=== PATIENT | female | born 1995 | race Caucasian/White ===

== ENCOUNTER 2025-06-03 12:32 | Emergency (ER) | payer BC, SELFPAY ==
--- NOTE | ~2025-06-03 | XR_ITS ---
EXAMINATION: XR chest 2V 06/03/2025 14:35 INDICATION: Right lower rib pain. Upper respiratory infection. PROCEDURE: 2 view chest COMPARISON: No prior studies for comparison. FINDINGS: The lungs are clear. Calcified granuloma right lung base. The cardiomediastinal silhouette is within normal limits. There are no pleural effusions. There is no pneumothorax suspected. IMPRESSION: 1: NO ACUTE CARDIOPULMONARY DISEASE. Reviewed, dictated and finalized at location O. ER [employer]OCK[employer] ENGINE
--- NOTE | ~2025-06-03 | CT_ITS ---
EXAMINATION: CTA chest PE protocol, 06/03/2025 15:25 COLD MILL OPERATOR HISTORY: cp COMPARISON: No comparisons available. TECHNIQUE: CTA examination is obtained with contrast CTA examination technique is performed with arterial phase of contrast-enhancement. 3-D reconstruction with thin MIP axial and MPR coronal imaging is provided Isovue 300, 92cc injected IV. One or more of the following dose reduction techniques were used: automated exposure control, adjustment of the mA and/or kV according to patient size, use of iterative reconstruction technique. FINDINGS: No significant coronary calcification is present ([id number]) LUNGS: Contrast bolus is adequate, there is no pulmonary embolism. No tracheomalacia. No bronchiectasis. Minimal emphysematous changes. Right basilar infiltrate noted. Within the right lower lobe there is a nodule measuring 11 x 10 mm with adjacent micronodules in a tree-in-bud distribution. HEART AND PERICARDIUM: Within normal limits. AORTA: Normal caliber aorta.. PULMONARY ARTERIES: No pulmonary embolism ADENOPATHY/MEDIASTINUM: There is a large heterogeneous appearing subcarinal mass measuring 4 x 3.9 cm extending into the right hilum and the adjacent parenchyma with narrowing of the bronchus in this location suspicious for neoplasm. LIMITED VIEWS OF THE ABDOMEN: Within normal limits. OSSEOUS STRUCTURES: No sclerotic or lytic lesions. No acute fractures are identified. OVERLYING SOFT TISSUES: Unremarkable. THYROID: The thyroid is unremarkable. IMPRESSION: 1. Negative for pulmonary embolism. 2. Large focus of right lower lobe probable bronchopneumonia however there is a subcarinal mass which may represent reactive mediastinal lymphadenopathy however the appearance is atypical with narrowing of the bronchi in this location an underlying neoplasm is suspected. Clinical correlation is required. Bronchoscopy suggested to assess Reviewed, dictated and finalized at location P. MILL OPERATOR IMPRESSION: 1. Negative for pulmonary embolism. 2. Large focus of right lower lobe probable bronchopneumonia however there is a subcarinal mass which may represent reactive mediastinal lymphadenopathy howev er the appearance is atypical with narrowing of the bronchi in this location an underlying neoplasm is suspected. Clinical correlation is required. Bronchosco py suggested to assess
[2025-06-03 12:37] VITALS: BP 149/88; PULSE 109; RESP 20; TEMP 36.6; O2SAT 100
--- OUTSIDE RECORDS SUMMARY | 2025-06-03 12:41 | XMS_ITS | Encounter Summary ---
Author Organization [employer] [facility] Address [address] [place] [address] Care Team Providers Care Steeplechase Jockey Name Role Phone Unavailable Primary Care Provider Unavailabl e Encounter Details Date Type Department Care Team (Latest Contact Info) Description 08/05/1998 Outpatient Historical [facility] Ray, Norris Guerra MD NO ADDRESS ON FILE Enlargement of lymph nodes (Primary Dx) Social History Tobacco Use Types Packs/Day Years Used Date Smoking Tobacco: Never Assessed Comments Unknown Sex and Gender Information Value Date Recorded Sex Assigned at Not on file Legal Sex Female 3:29 AM HEALTH INFORMATION DIRECTOR Gender Identity Not on file Sexual Orientation Not on file documented as of this encounter Plan of Treatment Not on file documented as of this encounter Visit Diagnoses Diagnosis Enlargement of lymph nodes- Primary documented in this encounter
--- OUTSIDE RECORDS SUMMARY | 2025-06-03 12:41 | XMS_ITS | Encounter Summary ---
Author Organization [employer] Address [address] [place] [address] Care Team Providers Care Director Of Human Resources Name Role Phone Unavailable Primary Care Provider Unavailabl e Encounter Details Date Type Department Care Team (Latest Contact Info) Description 08/24/1998 Outpatient Historical [facility] Norris Ray MD NO ADDRESS ON FILE Enlargement of lymph nodes (Primary Dx) Social History Tobacco Use Types Packs/Day Years Used Date Smoking Tobacco: Never Assessed Comments Unknown Sex and Gender Information Value Date Recorded Sex Assigned at Not on file Legal Sex Female 3:29 AM VICE PRESIDENT SAFETY Gender Identity Not on file Sexual Orientation Not on file documented as of this encounter Plan of Treatment Not on file documented as of this encounter Visit Diagnoses Diagnosis Enlargement of lymph nodes- Primary documented in this encounter
--- OUTSIDE RECORDS SUMMARY | 2025-06-03 12:41 | XMS_ITS | Clinical Summary ---
Author Organization [employer] [facility] Address [address] [facility] Attn: Epic Prelude ADT CRELISSA JARAMILLO [address] Care Team Providers Care Donation Worker Name Role Phone Unavailable Primary Care Provider Unavailabl e Social History Tobacco Use Types Packs/Day Years Used Date Smoking Tobacco: Never Assessed Comments Unknown Sex and Gender Information Value Date Recorded Sex Assigned at Not on file Legal Sex Female 3:29 AM SCUBA INSTRUCTOR Gender Identity Not on file Sexual Orientation Not on file Plan of Treatment Health Maintenance Due Date Last Done Comments DTAP/TDAP/TD VACCINES (1 - Tdap) 2016 HEPATITIS B VACCINES (1 of 3 - 19+ 3-dose series) 03/10 CERVICAL CANCER SCREENING 2018 HPV/Cotest (21-29) 2018 PAP SMEAR 2018 HPV VACCINES (1 - 3-dose SCDM series) 2024 INFLUENZA VACCINE (#1) 2025
--- OUTSIDE RECORDS SUMMARY | 2025-06-03 13:58 | XMS_ITS | Encounter Summary ---
Author Organization [facility] Address [address] [address] Care Team Providers Care Tafe Registrar Name Role Phone Callie Grubbs M.D. Primary Care Provider Darci Mars M.D. Unavailable Jai Pleitez M.D. Unavailable [phone] Lacey Ambriz M.D. Unavailable [phone] Callie Grubbs M.D. Unavailable Encounter Details Date Type Department Care Team (Late st Contact Info) Description 03/12/2024 [facility] Patient Message [facility] [address] [place] [address] Callie Grubbs M.D. [address] [place] [address] Social History Tobacco Use Types Packs/Day Years Used Date Smoking Tobacco: Never Smokeless Tobacco: Never Alcohol Use Standard Drinks/Week Comments Yes 0 (1 standard drink = 0.6 oz pur e alcohol) socially PHQ-2 Answer Date Recorded PHQ-2 Score 2 09/12/2023 Comments Unknown Sex and Gender Information Value Date Recorded Sex Assigned at Female 09/11/2023 5:42 PM HISTORY CARD CLERK Legal Sex Female 11:18 AM HISTORY CARD CLERK Gender Identity Female 09/11/2023 5:42 PM HISTORY CARD CLERK Sexual Orientation Bisexual 09/11/2023 5: 42 PM HISTORY CARD CLERK documented as of this encounter Plan of Treatment Upcoming Encounters Date Type Department Care Team (Late st Contact Info) Description 10/07/2025 4:00 PM CDT Office Visit [facility] [address] [place] [address] Jai Pleitez M.D. [address] [phone] documented as of this encounter Visit Diagnoses Not on filedocumented in this encounter Additional Health Concerns Assessment Noted Time PHQ-2 Depression Total Score: 2 09/12/19 24 4:15 PM HISTORY CARD CLERK documented as of this encounter Care Teams Tafe Registrar Relationship Specialty Start Date End Date Callie Grubbs M.D. [address] [place] [address] PCP - General Family Practice 09/12/23 Callie Grubbs M.D. [address] [place] [address] PCP - ACO Blue Attributed PCP 07/09/24 Darci Mars M.D. [address] [place] [address] Referring Provider Gastroenterology 02/25/24 Jai Pleitez M.D. [address] [phone] Referring Provider Gastroenterology 11/13/24 Lacey Ambriz M.D. [address] [place] [address] Referring Provider Urgent Care 03/26/25 documented as of this encounter
--- OUTSIDE RECORDS SUMMARY | 2025-06-03 13:58 | XMS_ITS | Encounter Summary ---
Author Organization [facility] Address [address] [address] Care Team Providers Care Emergency Response Technician Name Role Phone Callie Grubbs M.D. Primary Care Provider Darci Mars M.D. Unavailable [phone] Jai Pleitez M.D. Unavailable [phone] Lacey Ambriz M.D. Unavailable [phone] Callie Grubbs M.D. Unavailable [phone] Encounter Details Date Type Department Care Team (Late st Contact Info) Description 03/12/2024 [facility] Patient Message [facility] [address] [place] [address] Darci Mars M.D. [address] [place] [address] Social History Tobacco Use Types Packs/Day Years Used Date Smoking Tobacco: Never Smokeless Tobacco: Never Alcohol Use Standard Drinks/Week Comments Yes 0 (1 standard drink = 0.6 oz pur e alcohol) socially PHQ-2 Answer Date Recorded PHQ-2 Score 2 09/12/2023 Comments Unknown Sex and Gender Information Value Date Recorded Sex Assigned at Female 09/11/2023 5:42 PM HOSPITAL SALES REPRESENTATIVE Legal Sex Female 11:18 AM HOSPITAL SALES REPRESENTATIVE Gender Identity Female 09/11/2023 5:42 PM HOSPITAL SALES REPRESENTATIVE Sexual Orientation Bisexual 09/11/2023 5: 42 PM HOSPITAL SALES REPRESENTATIVE documented as of this encounter Plan of Treatment Upcoming Encounters Date Type Department Care Team (Late st Contact Info) Description 10/07/2025 4:00 PM CDT Office Visit [facility] [address] [place] [address] Jai Pleitez M.D. [address] [phone] documented as of this encounter Visit Diagnoses Not on filedocumented in this encounter Additional Health Concerns Assessment Noted Time PHQ-2 Depression Total Score: 2 09/12/19 4:15 PM HOSPITAL SALES REPRESENTATIVE documented as of this encounter Care Teams Emergency Response Technician Relationship Specialty Start Date End Date Callie Grubbs M.D. [address] [place] [address] PCP - General Family Practice 09/12/23 Callie Grubbs M.D. [address] [place] [address] PCP - ACO Blue Attributed PCP 07/09/24 Darci Mars M.D. [address] [place] [address] Referring Provider Gastroenterology 02/25/24 Jai Pleitez M.D. [address] [phone] Referring Provider Gastroenterology 11/13/24 Lacey Ambriz M.D. [address] [place] [address] Referring Provider Urgent Care 03/26/25 documented as of this encounter
--- OUTSIDE RECORDS SUMMARY | 2025-06-03 13:59 | XMS_ITS | Clinical Summary ---
Author Organization [facility] Address [address] [address] Care Team Providers Care Visual Merchandise Manager Name Role Phone Callie Grubbs M.D. Primary Care Provider [phone] Darci Mars M.D. Unavailable [phone] Jai Pleitez M.D. Unavailable [phone] Lacey Ambriz M.D. Unavailable [phone] Callie Grubbs M.D. Unavailable [phone] Allergies No known active allergies Medications mesalamine (ROWASA) 4 gram/60 mL enem enema Unwrap and insert 60 mL into the rectum every night at bedtime. 1800 mL 2 06/02/2024 3:32 PM CASH ACCOUNTING CLERK 4 Active sucralfate (Carafate) 100 mg/mL oral suspension Take 10 mL by mouth before meals and at bedtime. ...as needed for discomfort 300 mL 5 Active mesalamine (LIALDA) 1.2 gram tablet TAKE 2 TABLETS BY MOUTH DAILY 60 tablet 3 5 Active mesalamine (LIALDA) 1.2 gram tablet Take 2 tablets by mouth daily. 60 tablet 3 5 05/23/20 25 Discontinu ed(Therapy Complete) Active Problems Problem Noted Date Diagnosed Date IBD (inflammatory bowel disease) 09/08/2024 Family history of Renteria syndrome 09/08/2024 Encounters Date Type Department Care Team Description 05/23/2025 [facility] [address] [place] [address] Jai Pleitez M.D. 04/01/2025 [facility] Patient Message [facility] Family [facility] [address] [place] [address] Callie Grubbs M.D. 03/26/2025 5:40 PM CDT - 03/26/2025 11:59 PM CDT Hospital Encounter [facility] Diagnostic Radiology [address] [place] [address] Lacey Ambriz M.D. Chest pain, unspecified type Discharge Disposition: Home 03/26/2025 5:00 PM CDT Office Visit [facility] [address] [place] [address] Lacey Ambriz M.D. Chest pain, unspecified type (Primary Dx) 03/26/2025 Telephone [facility] [address] [place] [address] Katerin Sam R.N. 03/26/2025 Telephone [facility] [address] [place] [address] Elver Gan from Last 3 Months Immunizations Immunization Administration Dates Next Due Covid-19 Vaccine (Moderna) ( 12 Years And Older) [id number] 10/06/2024 DTaP Vaccine 02/16/2003, 9,1997,1997,1997 Hepatitis A Vaccine 03/05/2002,03/05/2000 Hepatitis B Vaccine, (3-Dose Series) 1997, 1997,1997 Human Papilloma Virus Vaccin e (Gardasil 9) 05/29/2011,12/06/2010,10/03/2010 Influenza Vaccine (FLUARIX) (6 Months to Adult) 09/12/2023,04/11/2021 Influenza Vaccine (Flucelvax ) 6 months and up 05/01/2022 Influenza Vaccine (Trivalent )(PF), 3 Yrs-Adult 04/24/2024 Influenza Vaccine-Egg Free ( 18+yo) (Flublok) 04/23/2020 Measles, Mumps & Rubella (MMR) 03/05/2002,1998 MenACWY-D (Menactra) (9 radha hs or older) 04/19/2015,12/07/2008 PPD Test 12/18/2011,01/13/2006,02/16/2003 Tdap Vaccine 10/06/2024,12/07/2008 Varicella Zoster Vaccine (Chickenpox) 01/14/2008 ,05/11/1998 Family History Medical History Relation Comments Hypertension Maternal Aunt Other Maternal Aunt Renteria syndrome Hypertension Maternal Grandfather Hypertension Maternal Grandmother Hypertension Maternal Uncle Inflammatory Bowel Disease - Ulcerative Colitis Maternal cousin Other Mother Renteria syndrome Hypertension Paternal Aunt Hypertension Paternal Grandfather Hypertension Paternal Grandmother Relation Status Comments Brother Alive Father Alive Maternal Aunt Alive Maternal Grandfather Maternal Grandmother Maternal Uncle Maternal cousin Alive Mother Alive Paternal Aunt Paternal Grandfather Paternal Grandmother Social History Tobacco Use Types Packs/Day Years Used Date Smoking Tobacco: Never Smokeless Tobacco: Never Tobacco Cessation:Counseling Given: Not Answered Alcohol Use Standard Drinks/Week Comments Yes 0 (1 standard drink = 0.6 oz pur e alcohol) socially PHQ-2 Answer Date Recorded PHQ-2 Score 0 07/15/2024 Comments Unknown Sex and Gender Information Value Date Recorded Sex Assigned at Female 09/11/2023 5:42 PM CASH ACCOUNTING CLERK Legal Sex Female 11:18 AM CASH ACCOUNTING CLERK Gender Identity Female 09/11/2023 5:42 PM CASH ACCOUNTING CLERK Sexual Orientation Bisexual 09/11/2023 5: 42 PM CASH ACCOUNTING CLERK Last Filed Vital Signs Vital Sign Reading Time Taken Comments Blood Pressure 129/79 03/26/2025 5:13 PM CDT Pulse 74 03/26/2025 5:13 PM CDT Temperature 36.5 C (97.7 F) 03/26/2025 5:13 PM CDT Respiratory Rate 18 03/26/2025 5:13 PM CDT Oxygen Saturation 100% 03/26/2025 5:13 PM CDT Inhaled Oxygen Concentration - - Weight 78.5 kg (173 lb) 03/26/2025 5:13 PM CDT Height 172.7 cm (5' 8) 03/26/2025 5:13 PM CDT Body Mass Index 26.3 03/26/2025 5:13 PM CDT Plan of Treatment Upcoming Encounters Date Type Department Care Team (Late st Contact Info) Description 10/07/2025 4:00 PM CDT Office Visit [facility] [address] [place] [address] Jai Pleitez M.D. [address] [place] [address] [facility] [place] [address] Health Maintenance Due Date Last Done Comments HEPATITIS C SCREENING 1997 HIV SCREENING 2012 Pneumococcal Vaccine: Childh ood and At-Risk Adult <65 yo Series (1 of 2 - PCV) 2016 ZOSTER SERIES VACCINE (1 of 2) 2016 COVID-19 VACCINE (6 - 2024-2 6 season) 2025 10/06/2024, 05/01/2022, 06/09/2021, Additional history exists INFLUENZA VACCINE (#1) 2025 , 09/12/2023, 05/01/2022, Additional history exists DEPRESSION SCREENING 07/15/2025 07/15/2024, 09/12/19 24 CERVICAL CANCER SCREENING 09/07/2025 09/07/2022 TDAP/TD VACCINE (8 - Td or Tdap) 10/06/2034 10/06/2024, 12/07/2008, 02/16/2003, Additional history exists Adult RSV VACCINE (1 - 1-dos e 75+ series) 2072 Procedures Procedure Name Priority Date/Time Associated Diagnosis Comments XR CHEST PA/LATERAL STAT with Interpretation 03/26/2025 5:46 PM CDT Chest pain, unspecified type HC CARDIAC TROPONIN T STAT 03/26/2025 5:44 PM CDT Chest pain, unspecified type D DIMER ASSAY STAT 03/26/2025 5:44 PM CDT Chest pain, unspecified type ADULT STANDARD 12 LEAD EKG/ECG STAT 03/26/2025 5:15 PM CDT Chest pain, unspecified type from Last 3 Months Results * XR CHEST PA/LATERAL (03/26/2025 5:46 PM CDT) Anatomical Region Laterality Modality Chest General Medical Imaging 03/27/2025 8:35 AM CDT Impressions 03/27/2025 8:42 AM CDT IMPRESSION: Right lower lung nodular opacity?indeterminate; follow-up recommended. Report Electronically Signed: 03/27/2025 8:42 AM Mehrdad Calixto M.D. Narrative 03/27/2025 8:42 AM CDT XR CHEST PA/LATERAL CLINICAL INFORMATION: Female, 29 years old. Reason: r/o effusion, mass, etc History: R sided CP TECHNIQUE: XR CHEST PA/LATERAL COMPARISON: None FINDINGS: Cardiomediastinal silhouette is within normal limits. No pneumothorax, pleural effusion, or focal consolidation is identified. A focal nodular opacity in the right lower lung is nonspecific and may reflect aspiration or infectious/inflammatory etiology. This opacity is not clearly visualized on the lateral chest radiograph. Follow-up imaging is recommended. Procedure Note Mehrdad Calixto M.D. - 03/27/2025 XR CHEST PA/LATERAL CLINICAL INFORMATION: Female, 29 years old. Reason: r/o effusion, mass, etc History: R sided CP TECHNIQUE: XR CHEST PA/LATERAL COMPARISON: None FINDINGS: Cardiomediastinal silhouette is within normal limits. Nopneumothorax, pleural effusion, or focal consolidation is identified. A focal nodular opacity in the right lower lung is nonspecific and mayreflect aspiration or infectious/inflammatory etiology. This opacity is not clearlyvisualized on the lateral chest radiograph. Follow-up imaging is recommended. IMPRESSION IMPRESSION: Right lower lung nodular opacity?indeterminate; follow- uprecommended. Report Electronically Signed: 03/27/2025 8:42 AM Mehrdad Calixto M.D. us Lacey Abmriz M.D. RADI Final Res ult * HIGH SENSITIVITY TROPONIN T (03/26/2025 5:44 PM CDT) [facility] High Sensitivity Troponin T <6 <14 ng/L 03/26/2025 10:22 PM CDT [facility] Blood VENOUS BLOOD / Unknown Venipuncture / Unknown 03/26/2025 5:44 PM CDT 03/26/2025 7:32 PM CDT Lacey Ambriz M.D. LAB CHEMISTRY ORDERABLES Final Result [facility] [address] [place] [address] * (ABNORMAL) D DIMER ASSAY (03/26/2025 5:44 PM CDT) [facility] D-Dimer Assay 0.58(H) <0.40 ug/mL FEU 03/26/2025 11:38 PM CDT [facility] Blood VENOUS BLOOD / Unknown Venipuncture / Unknown 03/26/2025 5:44 PM CDT 03/26/2025 10:19 PM CDT Narrative [facility] - 03/26/2025 11:38 PM CDT Note: The literature cut-off value for exclusion of DVT/PE in adults using this assay is generally 0.5 ug/mL Fibrinogen Equivalent Units (FEU). This cut-off has not been locally validated. Age-adjusted D-dimer calculations (only to be used for patients 50 years or greater) have been reported in the literature for the purpose of VTE exclusion, but are also not locally developed or validated. Age-adjusted D-dimer can be calculated as the patient's age multiplied by 0.01 ug/mL (10 ug/L). Example: For a patient aged 68 years, the D-dimer (in [facility]-utilized FEU units) would be considered normal below 0.680 ug/mL D-dimer levels are not validated for VTE exclusion in children. Elevated D-dimers could be due to acute thrombosis, recent surgery, sepsis, malignancy, increased fibrinolysis associated with DIC, liver disease, and other causes. False-positives can result from high titer rheumatoid factor, heterophile, or anti-mouse antibodies. References: 1. Jaspreet COVARRUBIAS et al. Clinical Decision Rules for Pulmonary Embolism in Hospitalized Patients: A Systematic Literature Review and [place]-analysis. Thromb Haemost. 2017. 117(11):9648-3975. PMID: 97318880. 2. Nancy HJ et al. Diagnostic accuracy of conventional or age adjusted D- dimer cut-off values in older patients with suspected venous thromboembolism: systematic review and meta-analysis. BMJ. 2013. 346:f2492. PMID: 46140059. 3. Jose Y et al. Effect of a Diagnostic Strategy Using an Elevated and Age- Adjusted D-Dimer Threshold on Thromboembolic Events in Emergency Department Patients With Suspected Pulmonary Embolism: A Randomized Clinical Trial. MARIA L. 2020Jun 14;326(21):8499-0157. PMID: 86880596 4. Aquino, Elkin James, Valarie James, Simin Quinn, Li Chu. Age-adjusted D-dimer cut-off levels to rule out venous thromboembolism in patients with non-high pre-test probability: Clinical performance and cost-effectiveness analysis. J Thromb Haemost. 2020;19(5):0377-1847. doi: 10.1111/jth.00254. Ep2020Sep 27. PMID: 23355755. 5. Li Chu, Karen James, Elkin James, F, Lucy D, Wellington C, Sherley J, Edmundo R, Aquino. Age dependency for coagulation parameters in paediatric populations. Results of a multicentre study aimed at defining the age-specific reference ranges. Thromb Haemost. 2016 Jan 09;116(1):9-16. doi: 10.1160/OC40-28-9386. Ep2015Sep 22. PMID: 74465455. Lacey Ambriz M.D. LAB COAGULATION ORDERABLE S Final Result [address] [address] * ADULT STANDARD 12 LEAD EKG/ECG (03/26/2025 5:15 PM CDT) SYSTOLIC BP mmHg [facility] DIASTOLIC BP mmHg [facility] VENTRICULAR RATE 69 BPM [facility] ATRIAL RATE 69 BPM [facility] P-R INTERVAL 144 ms [facility] QRS DURATION 92 ms [facility] Q-T INTERVAL 414 ms [facility] QTC CALCULATION 443 ms [facility] CALCULATED P AXIS 65 degrees [facility] CALCULATED R AXIS 62 degrees [facility] CALCULATED T AXIS 53 degrees [facility] DIAGNOSIS Normal sinus rhythm with sinus arrhythmia Normal ECG Confirmed by ARGENIS RODRIGUEZ M.D. ([id number]) on 04/06/2025 7:34:30 AM [facility] 03/26/2025 5:15 PM CDT 04/06/2025 7:34 AM CDT Lacey Ambriz M.D. HEART STATION ORDERABLES Final Result Performing Organization Address City/State/[facility] Co de Phone Number [facility] [address] [facility] [place] [address] from Last 3 Months Insurance BC/BS PPO BC/BS PPO BC/BS PPO BC/BS PPO Care Teams Visual Merchandise Manager Relationship Specialty Start Date End Date Callie Grubbs M.D. [address] [place], [place] [phone] PCP - General Family Practice 09/12/23 Callie Grubbs M.D. [address] [place] [phone] PCP - ACO Blue Attributed PCP 07/09/24 Darci Mars M.D. [address] [place] [address] Referring Provider Gastroenterology 02/25/24 Jai Pleitez M.D. [address] [facility] [phone] Referring Provider Gastroenterology 11/13/24 Lacey Ambriz M.D. [address] [place] [phone] Referring Provider Urgent Care 03/26/25
--- OUTSIDE RECORDS SUMMARY | 2025-06-03 13:59 | XMS_ITS | Encounter Summary ---
Author Organization [facility] Address [address] [address] Care Team Providers Care Data Center Solutions Architect Name Role Phone Callie Grubbs M.D. Primary Care Provider Darci Mars M.D. Unavailable [phone] Jai Pleitez M.D. Unavailable [phone] Lacey Ambriz M.D. Unavailable [phone] Callie Grubbs M.D. Unavailable [phone] Encounter Details Date Type Department Care Team (Late st Contact Info) Description 02/18/2024 [facility] Patient [facility] Internal Medicine [address] [place], [place] [phone] Daya Olmedo R.N. Social History Tobacco Use Types Packs/Day Years Used Date Smoking Tobacco: Never Smokeless Tobacco: Never Alcohol Use Standard Drinks/Week Comments Yes 0 (1 standard drink = 0.6 oz pur e alcohol) socially PHQ-2 Answer Date Recorded PHQ-2 Score 2 09/12/2023 Comments Unknown Sex and Gender Information Value Date Recorded Sex Assigned at Female 09/11/2023 5:42 PM ENGINEERING SPECIALIST Legal Sex Female 11:18 AM ENGINEERING SPECIALIST Gender Identity Female 09/11/2023 5:42 PM ENGINEERING SPECIALIST Sexual Orientation Bisexual 09/11/2023 5: 42 PM ENGINEERING SPECIALIST documented as of this encounter Plan of Treatment Upcoming Encounters Date Type Department Care Team (Late st Contact Info) Description 10/07/2025 4:00 PM CDT Office Visit [facility] [address] [place] [address] Jai Pleitez M.D. [address] [phone] documented as of this encounter Visit Diagnoses Not on filedocumented in this encounter Additional Health Concerns Assessment Noted Time PHQ-2 Depression Total Score: 2 09/12/19 24 4:15 PM ENGINEERING SPECIALIST documented as of this encounter Care Teams Data Center Solutions Architect Relationship Specialty Start Date End Date Callie Grubbs M.D. [address] [place] [address] PCP - General Family Practice 09/12/23 Callie Grubbs M.D. [address] [place] [phone] PCP - ACO Blue Attributed PCP 07/09/24 Darci Mars M.D. [address] [place] [address] Referring Provider Gastroenterology 02/25/24 Jai Pleitez M.D. [address] [phone] Referring Provider Gastroenterology 11/13/24 Lacey Ambriz M.D. [address] [place] [address] Referring Provider Urgent Care 03/26/25 documented as of this encounter
--- OUTSIDE RECORDS SUMMARY | 2025-06-03 13:59 | XMS_ITS | Encounter Summary ---
Author Organization [facility] Address [address] [place] [address] Care Team Providers Care Retort Engineer Name Role Phone Callie Grubbs M.D. Primary Care Provider Darci Mars M.D. Unavailable Jai Pleitez M.D. Unavailable [phone] Lacey Ambriz M.D. Unavailable [phone] Callie Grubbs M.D. Unavailable [phone] Encounter Details Date Type Department Care Team (Late st Contact Info) Description 07/12/2024 MYC Patient Message [facility] [address] [facility] Room [address] [place] [phone] Mychart, Default Provider [address] [facility] [address] [place] [address] Social History Tobacco Use Types Packs/Day Years Used Date Smoking Tobacco: Never Smokeless Tobacco: Never Alcohol Use Standard Drinks/Week Comments Yes 0 (1 standard drink = 0.6 oz pur e alcohol) socially PHQ-2 Answer Date Recorded PHQ-2 Score 0 07/15/2024 Comments Unknown Sex and Gender Information Value Date Recorded Sex Assigned at Female 09/11/2023 5:42 PM SUPERVISOR SHUTTLE FITTING Legal Sex Female 11:18 AM SUPERVISOR SHUTTLE FITTING Gender Identity Female 09/11/2023 5:42 PM SUPERVISOR SHUTTLE FITTING Sexual Orientation Bisexual 09/11/2023 5: 42 PM SUPERVISOR SHUTTLE FITTING documented as of this encounter Plan of Treatment Upcoming Encounters Date Type Department Care Team (Late st Contact Info) Description 10/07/2025 4:00 PM CDT Office Visit [facility] [address] [place] [address] Jai Pleitez M.D. [address] [phone] documented as of this encounter Visit Diagnoses Not on filedocumented in this encounter Additional Health Concerns Assessment Noted Time PHQ-2 Depression Total Score: 2 09/12/19 24 4:15 PM SUPERVISOR SHUTTLE FITTING documented as of this encounter Care Teams Retort Engineer Relationship Specialty Start Date End Date Callie Grubbs M.D. [address] [place] [address] PCP - General Family Practice 09/12/23 Callie Grubbs M.D. [address] [place] [address] PCP - ACO Blue Attributed PCP 07/09/24 Darci Mars M.D. [address] [place] [address] Referring Provider Gastroenterology 02/25/24 Jai Pleitez M.D. [address] [phone] Referring Provider Gastroenterology 11/13/24 Lacey Ambriz M.D. [address] [place] [address] Referring Provider Urgent Care 03/26/25 documented as of this encounter
--- OUTSIDE RECORDS SUMMARY | 2025-06-03 13:59 | XMS_ITS | Encounter Summary ---
Author Organization [facility] Address [address] [address] Care Team Providers Care Supervisor Soakers Name Role Phone Callie Grubbs M.D. Primary Care Provider [phone] Darci Mars M.D. Unavailable [phone] Jai Pleitez M.D. Unavailable [phone] Lacey Ambriz M.D. Unavailable [phone] Callie Grubbs M.D. Unavailable [phone] Encounter Details Date Type Department Care Team (Late st Contact Info) Description 07/14/2024 [facility] [place] Message [facility] [address] [place] [address] Rhonda Basilio, C.GFrankC [address] [place] [address] Social History Tobacco Use Types Packs/Day Years Used Date Smoking Tobacco: Never Smokeless Tobacco: Never Alcohol Use Standard Drinks/Week Comments Yes 0 (1 standard drink = 0.6 oz pur e alcohol) socially PHQ-2 Answer Date Recorded PHQ-2 Score 0 07/15/2024 Comments Unknown Sex and Gender Information Value Date Recorded Sex Assigned at Female 09/11/2023 5:42 PM FUSELAGE FRAMER Legal Sex Female 11:18 AM FUSELAGE FRAMER Gender Identity Female 09/11/2023 5:42 PM FUSELAGE FRAMER Sexual Orientation Bisexual 09/11/2023 5: 42 PM FUSELAGE FRAMER documented as of this encounter Plan of Treatment Upcoming Encounters Date Type Department Care Team (Late st Contact Info) Description 10/07/2025 4:00 PM CDT Office Visit [facility] [address] [place] [address] Jai Pleitez M.D. [address] [phone] documented as of this encounter Visit Diagnoses Not on filedocumented in this encounter Additional Health Concerns Assessment Noted Time PHQ-2 Depression Total Score: 2 09/12/19 24 4:15 PM FUSELAGE FRAMER documented as of this encounter Care Teams Supervisor Soakers Relationship Specialty Start Date End Date Callie Grubbs M.D. [facility] [place] [address] PCP - General Family Practice 09/12/23 Callie Grubbs M.D. [address] [place] [address] PCP - ACO Blue Attributed PCP 07/09/24 Darci Mars M.D. [address] [place] [address] Referring Provider Gastroenterology 02/25/24 Jai Pleitez M.D. [address] [phone] Referring Provider Gastroenterology 11/13/24 Lacey Ambriz M.D. [address] [place] [address] Referring Provider Urgent Care 03/26/25 documented as of this encounter
--- OUTSIDE RECORDS SUMMARY | 2025-06-03 13:59 | XMS_ITS | Encounter Summary ---
Author Organization [facility] Address [address] [address] Care Team Providers Care Sba Business Development Officer Name Role Phone Callie Grubbs M.D. Primary Care Provider Darci Mars M.D. Unavailable Jai Pleitez M.D. Unavailable [phone] Lacey Ambriz M.D. Unavailable Callie Grubbs M.D. Unavailable Encounter Details Date Type Department Care Team (Late st Contact Info) Description 09/23/2024 [facility] Patient Message [facility] [address] [place] [address] Callie Grubbs M.D. [address] [place] [address] Social History Tobacco Use Types Packs/Day Years Used Date Smoking Tobacco: Never Smokeless Tobacco: Never Alcohol Use Standard Drinks/Week Comments Yes 0 (1 standard drink = 0.6 oz pur e alcohol) socially PHQ-2 Answer Date Recorded PHQ-2 Score 0 07/15/2024 Comments Unknown Sex and Gender Information Value Date Recorded Sex Assigned at Female 09/11/2023 5:42 PM BRAKE DRUM LATHE OPERATOR Legal Sex Female 11:18 AM BRAKE DRUM LATHE OPERATOR Gender Identity Female 09/11/2023 5:42 PM BRAKE DRUM LATHE OPERATOR Sexual Orientation Bisexual 09/11/2023 5: 42 PM BRAKE DRUM LATHE OPERATOR documented as of this encounter Plan of Treatment Upcoming Encounters Date Type Department Care Team (Late st Contact Info) Description 10/07/2025 4:00 PM CDT Office Visit [facility] [address] [place] [address] Jai Pleitez M.D. [address] [phone] documented as of this encounter Visit Diagnoses Not on filedocumented in this encounter Additional Health Concerns Assessment Noted Time PHQ-2 Depression Total Score: 0 07/15/19 9:30 AM BRAKE DRUM LATHE OPERATOR documented as of this encounter Care Teams Sba Business Development Officer Relationship Specialty Start Date End Date Callie Grubbs M.D. [address] [place] [address] PCP - General Family Practice 09/12/23 Callie Grubbs M.D. [address] [place] [address] PCP - ACO Blue Attributed PCP 07/09/24 Darci Mars M.D. [address] [place] [address] Referring Provider Gastroenterology 02/25/24 Jai Pleitez M.D. [address] [phone] Referring Provider Gastroenterology 11/13/24 Lacey Ambriz M.D. [address] [place] [address] Referring Provider Urgent Care 03/26/25 documented as of this encounter
--- OUTSIDE RECORDS SUMMARY | 2025-06-03 13:59 | XMS_ITS | Encounter Summary ---
Author Organization [facility] Address [address] [address] Care Team Providers Care Poultry Slaughterer Name Role Phone Callie Grubbs M.D. Primary Care Provider Darci Mars M.D. Unavailable Jai Pleitez M.D. Unavailable [phone] Lacey Ambriz M.D. Unavailable Callie Grubbs M.D. Unavailable [phone] Encounter Details Date Type Department Care Team (Late st Contact Info) Description 01/19/2025 [facility] Patient Message [facility] [address] [place] [address] Jai Pleitez M.D. [address] [facility] [place] [address] Social History Tobacco Use Types Packs/Day Years Used Date Smoking Tobacco: Never Smokeless Tobacco: Never Alcohol Use Standard Drinks/Week Comments Yes 0 (1 standard drink = 0.6 oz pur e alcohol) socially PHQ-2 Answer Date Recorded PHQ-2 Score 0 07/15/2024 Comments Unknown Sex and Gender Information Value Date Recorded Sex Assigned at Female 09/11/2023 5:42 PM APRON MAN Legal Sex Female 11:18 AM APRON MAN Gender Identity Female 09/11/2023 5:42 PM APRON MAN Sexual Orientation Bisexual 09/11/2023 5: 42 PM APRON MAN documented as of this encounter Plan of Treatment Upcoming Encounters Date Type Department Care Team (Late st Contact Info) Description 10/07/2025 4:00 PM CDT Office Visit [facility] [address] [place] [address] Jai Pleitez M.D. [address] [place] [address] [place] [address] documented as of this encounter Visit Diagnoses Not on filedocumented in this encounter Additional Health Concerns Assessment Noted Time PHQ-2 Depression Total Score: 0 07/15/19 9:30 AM APRON MAN documented as of this encounter Care Teams Poultry Slaughterer Relationship Specialty Start Date End Date Callie Grubbs M.D. [address] [place] [address] PCP - General Family Practice 09/12/23 Callie Grubbs M.D. [address] [place] [address] PCP - ACO Blue Attributed PCP 07/09/24 Darci Mars M.D. [address] [place] [address] Referring Provider Gastroenterology 02/25/24 Jai Pleitez M.D. [address] [address] Referring Provider Gastroenterology 11/13/24 Lacey Ambriz M.D. [address] [place] [id number] (work) Referring Provider Urgent Care 03/26/25 documented as of this encounter
--- OUTSIDE RECORDS SUMMARY | 2025-06-03 13:59 | XMS_ITS | Encounter Summary ---
Author Organization [facility] Address [address] [address] Care Team Providers Care Waredresser Name Role Phone Callie Grubbs M.D. Primary Care Provider [phone] Darci Mars M.D. Unavailable [phone] Jai Pleitez M.D. Unavailable [phone] Lacey Ambriz M.D. Unavailable Callie Grubbs M.D. Unavailable [phone] Encounter Details Date Type Department Care Team (Late st Contact Info) Description 01/16/2024 [facility] [place] Patient Message [facility] [address] [place] [address] Callie Grubbs M.D. [address] [place] [address] Social History Tobacco Use Types Packs/Day Years Used Date Smoking Tobacco: Never Smokeless Tobacco: Never Alcohol Use Standard Drinks/Week Comments Yes 0 (1 standard drink = 0.6 oz pur e alcohol) socially PHQ-2 Answer Date Recorded PHQ-2 Score 2 09/12/2023 Comments Unknown Sex and Gender Information Value Date Recorded Sex Assigned at Female 09/11/2023 5:42 PM RE DYE HAND Legal Sex Female 11:18 AM RE DYE HAND Gender Identity Female 09/11/2023 5:42 PM RE DYE HAND Sexual Orientation Bisexual 09/11/2023 5: 42 PM RE DYE HAND documented as of this encounter Plan of Treatment Upcoming Encounters Date Type Department Care Team (Late st Contact Info) Description 10/07/2025 4:00 PM CDT Office Visit [facility] [address] [place] [address] Jai Pleitez M.D. [address] [phone] documented as of this encounter Visit Diagnoses Not on filedocumented in this encounter Additional Health Concerns Assessment Noted Time PHQ-2 Depression Total Score: 2 09/12/19 24 4:15 PM RE DYE HAND documented as of this encounter Care Teams Waredresser Relationship Specialty Start Date End Date Callie Grubbs M.D. [address] [place] [address] PCP - General Family Practice 09/12/23 Callie Grubbs M.D. [address] [place] [address] PCP - ACO Blue Attributed PCP 07/09/24 Darci Mars M.D. [address] [place] [address] Referring Provider Gastroenterology 02/25/24 Jai Pleitez M.D. [address] [phone] Referring Provider Gastroenterology 11/13/24 Lacey Ambriz M.D. [address] [place] [address] Referring Provider Urgent Care 03/26/25 documented as of this encounter
--- OUTSIDE RECORDS SUMMARY | 2025-06-03 13:59 | XMS_ITS | Encounter Summary ---
Author Organization [facility] Address [address] [place] [address] Care Team Providers Care Inside Sales Agent Name Role Phone Unavailable Primary Care Provider Unavailabl e Encounter Details Date Type Department Care Team (Latest Contact Info) Description 08/05/1998 Outpatient Historical [facility] Ray, Norris Guerra MD NO ADDRESS ON FILE Enlargement of lymph nodes (Primary Dx) Social History Tobacco Use Types Packs/Day Years Used Date Smoking Tobacco: Never Assessed Comments Unknown Sex and Gender Information Value Date Recorded Sex Assigned at Not on file Legal Sex Female 3:29 AM FURNACE BRAZER Gender Identity Not on file Sexual Orientation Not on file documented as of this encounter Plan of Treatment Not on file documented as of this encounter Visit Diagnoses Diagnosis Enlargement of lymph nodes- Primary documented in this encounter
--- OUTSIDE RECORDS SUMMARY | 2025-06-03 13:59 | XMS_ITS | Clinical Summary ---
Author Organization [employer] [facility] Address [address] [facility] Attn: Epic Prelude ADT [place] [address] Care Team Providers Care Citrix Architect Name Role Phone Unavailable Primary Care Provider Unavailabl e Social History Tobacco Use Types Packs/Day Years Used Date Smoking Tobacco: Never Assessed Comments Unknown Sex and Gender Information Value Date Recorded Sex Assigned at Not on file Legal Sex Female 3:29 AM SCREW MACHINE OPERATOR SINGLE SPINDLE Gender Identity Not on file Sexual Orientation [...]
--- OUTSIDE RECORDS SUMMARY | 2025-06-03 13:59 | XMS_ITS | Encounter Summary ---
Author Organization [facility] Address [address] [address] Care Team Providers Care Screener Operator Name Role Phone Callie Grubbs M.D. Primary Care Provider [phone] Darci Mars M.D. Unavailable [phone] Jai Pleitez M.D. Unavailable [phone] Lacey Ambriz M.D. Unavailable [phone] Callie Grubbs M.D. Unavailable [phone] Encounter Details Date Type Department Care Team (Late st Contact Info) Description 03/21/2024 [facility] [place] Patient Message [facility] [address] [place], [place] [address] Cousins, Madelyn RFrankNFrank Social History Tobacco Use Types Packs/Day Years Used Date Smoking Tobacco: Never Smokeless Tobacco: Never Alcohol Use Standard Drinks/Week Comments Yes 0 (1 standard drink = 0.6 oz pur e alcohol) socially PHQ-2 Answer Date Recorded PHQ-2 Score 2 09/12/2023 Comments Unknown Sex and Gender Information Value Date Recorded Sex Assigned at Female 09/11/2023 5:42 PM GAS TRUCK DRIVER Legal Sex Female 11:18 AM GAS TRUCK DRIVER Gender Identity Female 09/11/2023 5:42 PM GAS TRUCK DRIVER Sexual Orientation Bisexual 09/11/2023 5: 42 PM GAS TRUCK DRIVER documented as of this encounter Plan of Treatment Upcoming Encounters Date Type Department Care Team (Late st Contact Info) Description 10/07/2025 4:00 PM CDT Office Visit [facility] [address] [place] [address] Jai Pleitez M.D. [address] [phone] documented as of this encounter Visit Diagnoses Not on filedocumented in this encounter Additional Health Concerns Assessment Noted Time PHQ-2 Depression Total Score: 2 09/12/19 24 4:15 PM GAS TRUCK DRIVER documented as of this encounter Care Teams Screener Operator Relationship Specialty Start Date End Date Callie Grubbs M.D. [address] [place] [address] PCP - General Family Practice 09/12/23 Callie Grubbs M.D. [address] [place] [address] PCP - ACO Blue Attributed PCP 07/09/24 Darci Mars M.D. [address] [place] [address] Referring Provider Gastroenterology 02/25/24 Jai Pleitez M.D. [address] [phone] Referring Provider Gastroenterology 11/13/24 Lacey Ambriz M.D. [address] [place] [address] Referring Provider Urgent Care 03/26/25 documented as of this encounter
--- OUTSIDE RECORDS SUMMARY | 2025-06-03 13:59 | XMS_ITS | Encounter Summary ---
Author Organization [facility] Address [address] [place] [address] Care Team Providers Care Explosive Man Name Role Phone Unavailable Primary Care Provider [...] on file Legal Sex Female 3:29 AM DIRECTOR ZONE Gender Identity Not on file Sexual Orientation Not on file documented as of this encounter Plan of Treatment Not on file documented as of this encounter Visit Diagnoses Diagnosis Enlargement of lymph nodes- Primary documented in this encounter
--- OUTSIDE RECORDS SUMMARY | 2025-06-03 13:59 | XMS_ITS | Encounter Summary ---
Author Organization [facility] Address [address] [address] Care Team Providers Care Pilot Boat Operator Name Role Phone Callie Grubbs M.D. Primary Care Provider Darci Mars M.D. Unavailable Jai Pleitez M.D. Unavailable [phone] Lacey Ambriz M.D. Unavailable Callie Grubbs M.D. Unavailable Encounter Details Date Type Department Care Team (Late st Contact Info) Description 04/01/2025 [facility] [place] Patient Message [facility] [address] [place] [address] Callie Grubbs M.D. [address] [place] [address] Social History Tobacco Use Types Packs/Day Years Used Date Smoking Tobacco: Never Smokeless Tobacco: Never Alcohol Use Standard Drinks/Week Comments Yes 0 (1 standard drink = 0.6 oz pur e alcohol) socially PHQ-2 Answer Date Recorded PHQ-2 Score 0 07/15/2024 Comments Unknown Sex and Gender Information Value Date Recorded Sex Assigned at Female 09/11/2023 5:42 PM SERVICER COIN MACHINES Legal Sex Female 11:18 AM SERVICER COIN MACHINES Gender Identity Female 09/11/2023 5:42 PM SERVICER COIN MACHINES Sexual Orientation Bisexual 09/11/2023 5: 42 PM SERVICER COIN MACHINES documented as of this encounter Plan of Treatment Upcoming Encounters Date Type Department Care Team (Late st Contact Info) Description 10/07/2025 4:00 PM CDT Office Visit [facility] [address] [place] [address] Jai Pleitez M.D. [address] [phone] documented as of this encounter Visit Diagnoses Not on filedocumented in this encounter Additional Health Concerns Assessment Noted Time PHQ-2 Depression Total Score: 0 07/15/19 9:30 AM SERVICER COIN MACHINES documented as of this encounter Care Teams Pilot Boat Operator Relationship Specialty Start Date End Date Callie Grubbs M.D. [address] [place] [address] PCP - General Family Practice 09/12/23 Callie Grubbs M.D. [address] [place] [address] PCP - ACO Blue Attributed PCP 07/09/24 Darci Mars M.D. [address] [place] [address] Referring Provider Gastroenterology 02/25/24 Jai Pleitez M.D. [address] [phone] Referring Provider Gastroenterology 11/13/24 Lacey Ambriz M.D. [address] [place] [address] Referring Provider Urgent Care 03/26/25 documented as of this encounter
--- OUTSIDE RECORDS SUMMARY | 2025-06-03 13:59 | XMS_ITS | Encounter Summary ---
Author Organization [facility] Address [address] [place] [address] Care Team Providers Care Electronics Recycler Name Role Phone Callie Grubbs M.D. Primary Care Provider [phone] Darci Mars M.D. Unavailable [phone] Jai Pleitez M.D. Unavailable [phone] Lacey Ambriz M.D. Unavailable [phone] Callie Grubbs M.D. Unavailable [phone] Encounter Details Date Type Department Care Team (Late st Contact Info) Description 02/25/2024 [facility] Patient Message [facility] - [facility] [address] [facility] [address] [place] [phone] Mychart, Default Provider [address] [facility] [address] [place] [address] Social History Tobacco Use Types Packs/Day Years Used Date Smoking Tobacco: Never Smokeless Tobacco: Never Alcohol Use Standard Drinks/Week Comments Yes 0 (1 standard drink = 0.6 oz pur e alcohol) socially PHQ-2 Answer Date Recorded PHQ-2 Score 2 09/12/2023 Comments Unknown Sex and Gender Information Value Date Recorded Sex Assigned at Female 09/11/2023 5:42 PM MEDICAL REGISTRAR Legal Sex Female 11:18 AM MEDICAL REGISTRAR Gender Identity Female 09/11/2023 5:42 PM MEDICAL REGISTRAR Sexual Orientation Bisexual 09/11/2023 5: 42 PM MEDICAL REGISTRAR documented as of this encounter Plan of Treatment Upcoming Encounters Date Type Department Care Team (Late st Contact Info) Description 10/07/2025 4:00 PM CDT Office Visit [facility] [address] [place] [address] Jai Pleitez M.D. [address] [phone] documented as of this encounter Visit Diagnoses Not on filedocumented in this encounter Additional Health Concerns Assessment Noted Time PHQ-2 Depression Total Score: 2 09/12/19 24 4:15 PM MEDICAL REGISTRAR documented as of this encounter Care Teams Electronics Recycler Relationship Specialty Start Date End Date Callie Grubbs M.D. [address] [place] [address] PCP - General Family Practice 09/12/23 Callie Grubbs M.D. [address] [place] [address] PCP - ACO Blue Attributed PCP 07/09/24 Darci Mars M.D. [address] [place] [address] Referring Provider Gastroenterology 02/25/24 Jai Pleitez M.D. [address] [phone] Referring Provider Gastroenterology 11/13/24 Lacey Ambriz M.D. [address] [place] [address] Referring Provider Urgent Care 03/26/25 documented as of this encounter
[2025-06-03 14:50] LABS: BEDSIDEPREGUCG Negative (Negative)
[2025-06-03 14:58] LABS: Hematocrit 41.2 % (37.0-47.0); Hemoglobin 13.6 g/dL (12.0-15.0); Immature Granulocyte Percent A 0.4 % (0-0.5); Lymphocytes Absolute Auto 1.28 K/mm3 (0.9-3.2); Mean Corpuscular HGB Conc 33.0 g/dl (32-36); Mean Corpuscular Hemoglobin 28.5 pg (26-34); Mean Corpuscular Volume 86.4 fl (80-100); Nucleated Red Blood Cells Absolute Auto 0.000 K/mm3 (0.0-0.012); Nucleated Red Blood Cells Perc 0.0 % (0.0-0.2); Platelet Count Result 298 k/mm3 (150-375); Red Blood Count 4.77 M/mm3 (4.2-5.4); White Blood Count 12.1 K/mm3 (4.5-10.0)
[2025-06-03 15:02] LABS: Add Urine Microscopic? YES; Appearance Urine Clear (Clear); Glucose Urine UA Negative (Negative); Leukocyte Esterase Ur Trace LEU/UL (Negative); Nitrate Urine Negative (Negative); Non Pathogenic Casts 0-2; Specific Grav Ur 1.007 (1.001-1.035)
[2025-06-03 15:10] LABS: Alanine Aminotransferase 17 U/L (6-35); Albumin Level 4.3 g/dL (3.5-5.1); Alkaline Phosphatase 88 U/L (38-126); Anion Gap 8 mmol/L (4-12); Aspartate Amino Transferase 31 U/L (14-36); Bilirubin,Total 0.6 mg/dL (0.2-1.3); Blood Urea Nitrogen 8 mg/dL (7-17); Calcium 9.1 mg/dL (8.4-10.2); Carbon Dioxide 27 mmol/L (22-30); Chloride 102 mmol/L (98-107); Estimated CRCL calculation 107 ml/min; Estimated Glomerular Filt Rate > 60; Glucose 104 mg/dL (65-110); Potassium 3.6 mmol/L (3.4-5.0); Sodium 137 mmol/L (137-145); Total Protein 8.5 g/dL (6.3-8.2)
[2025-06-03 15:37] VITALS: BP 121/72; PULSE 79; RESP 18; O2SAT 100
[2025-06-03 15:39] LABS: Influenza A QL RT-PCR Negative (Negative); Influenza B QL RT-PCR Negative (Negative); RSV RNA, RT-PCR Negative (Negative); SARS-CoV-2 RNA PCR Negative (Negative)
--- NOTE | 2025-06-03 15:53 | ED_ITS ---
HPI - General Adult General Chief complaint: Upper Respiratory Infection Stated complaint: cough, rib pain Time Seen by Provider: 06/03/25 13:51 History of Present Illness HPI narrative: 30-year-old female presenting with right sided lower rib pain that radiates to her back as well as URI symptoms this Sunday. Patient reports she developed a cough/congestion on Sunday with symptoms progressing since then including subjective fever/chills and pleuritic chest pain. Denies nausea/vomiting/diarrhea, shortness of breath, or any recent history of trauma. Patient reports no significant past medical history. Related Data Allergies Allergy/AdvReac Type Severity Reaction Status Date / Time No Known Allergies Allergy Unverified 11/18/13 09:01 Review of Systems 2 Review of Systems: All systems reviewed & are unremarkable except as noted in HPI and below Exam 2 Narrative: GENERAL: No acute distress. HEAD: Normocephalic, atraumatic. EYES: PERRLA and EOMI. ENT: Nares clear, no rhinorrhea or epistaxis. Mucous membranes moist. Oropharynx without tonsillar hypertrophy exudate or other lesions. Bilateral TMs pearly [place] non-bulging NECK: Supple. No adenopathy or masses. No carotid bruits or JVD CHEST: Clear to auscultation. No respiratory distress. No wheezes rales or rhonchi HEART: Regular rate and rhythm. No murmur heard. Normal peripheral pulses. ABDOMEN: Soft, nontender, nondistended, normal active bowel sounds. Mild TTP around lower right rib cage. EXTREMITIES: Normal range of motion. No edema. SKIN: Warm, dry, no rash. NEURO: No focal deficits. Alert and oriented x3. PSYCH: Normal mood and affect Course Vital Signs Vital signs: Vital Signs Temperature 97.8 F 06/03/25 12:37 Pulse Rate 109 H 06/03/25 12:37 Respiratory Rate 20 06/03/25 12:37 Blood Pressure 149/88 H 06/03/25 12:37 Pulse Oximetry 100 06/03/25 12:37 Oxygen Delivery Room Air 06/03/25 12:37 Temperature 97.8 F 06/03/25 12:37 Pulse Rate 88 06/03/25 16:48 Respiratory Rate 17 06/03/25 16:48 Blood Pressure 129/78 06/03/25 16:48 Pulse Oximetry 98 06/03/25 16:48 Oxygen Delivery Room Air 06/03/25 12:37 Medical Decision Making MDM Narrative Medical decision making narrative: 30-year-old female presenting with right sided lower rib pain that radiates to her back as well as URI symptoms since Sunday. Other symptoms include a dry cough/congestion, subjective fevers/chills, urinary concerns, and pleuritic chest pain. Upon initial assessment, patient is nontoxic with stable vital signs. Mild leukocytosis at 12.1. D-dimer 0.59. CTA negative for pulmonary embolism. CTA also noted a focus of right lower lobe probable bronchopneumonia as well as a subcarinal mass which may represent reactive mediastinal lymphadenopathy however the appearance is atypical with narrowing of the bronchi in this location an underlying neoplasm is suspected. Clinical correlation is required. Bronchoscopy suggested to assess. Discussed these findings with the patient and she verbalized understanding for the need for follow-up with pulmonology. Patient is not from this area and asked for pulmonology at [facility]. Number searched and provided. Will treat outpatient for pneumonia with doxycycline and Augmentin. Flu/Covid/RSV negative. Other labs WNL. Patient agrees with discussion and after shared medical decision making agrees with plan of care. All questions were answered to the patient's satisfaction. The patient is appropriate for outpatient treatment and follow- up. Given reasons to return. Patient received a dose of Dilaudid that was intended for a different patient. Patient was alert and oriented and in no respiratory distress when discussed discharge plan. Spoke to patient over the phone a few hours after discharge about the incidental medication administration. She reported that she is feeling great and has no concerns. Advised to return if anything concerning occurs. Medical Records Medical records reviewed: Yes I reviewed the external patient's medical records. Vital Signs Vital Signs: Vital Signs Temperature 97.8 F 06/03/25 12:37 Pulse Rate 109 H 06/03/25 12:37 Respiratory Rate 20 06/03/25 12:37 Blood Pressure 149/88 H 06/03/25 12:37 Pulse Oximetry 100 06/03/25 12:37 Oxygen Delivery Room Air 06/03/25 12:37 Temperature 97.8 F 06/03/25 12:37 Pulse Rate 88 06/03/25 16:48 Respiratory Rate 17 06/03/25 16:48 Blood Pressure 129/78 06/03/25 16:48 Pulse Oximetry 98 06/03/25 16:48 Oxygen Delivery Room Air 06/03/25 12:37 Lab Data Lab results reviewed: Yes I reviewed the patient's lab results. 06/03/25 14:42 06/03/25 14:42 Labs: Lab Results 06/03/25 06/03/25 06/03/25 Range/Units 14:42 14:47 14:49 WBC 12.1 H (4.5-10.0) K/mm3 RBC 4.77 (4.2-5.4) M/mm3 Hgb 13.6 (12.0-15.0) g/dL Hct 41.2 (37.0-47.0) % MCV 86.4 (80-100) fl MCH 28.5 (26-34) pg MCHC 33.0 (32-36) g/dl RDW 13.2 (11.5-14.5) % Plt Count 298 (150-375) k/mm3 MPV 9.8 (7.4-10.4) fl Immature Gran % (Auto) 0.4 (0-0.5) % Neut % (Auto) 82.0 H (45.5-73.1) % Lymph % (Auto) 10.6 L (18.3-44.2) % [place] % (Auto) 6.5 (2.6-8.5) % Eos % (Auto) 0.2 (0-4.4) % Baso % (Auto) 0.3 (0.2-1.2) % Lymph # (Auto) 1.28 (0.9-3.2) K/mm3 [place] # (Auto) 0.8 H (0.1-0.6) K/mm3 Eos # (Auto) 0.0 (0-0.3) K/mm3 Baso # (Auto) 0.0 (0.0-0.1) K/mm3 Abs Immat Gran (auto) 0.05 H (0.00-0.031) K/mm3 Absolute Neuts (auto) 10.0 H (1.3-6.7) K/mm3 Absolute Nucleated RBC 0.000 (0.0-0.012) K/mm3 Nucleated RBC % 0.0 (0.0-0.2) % D-Dimer 0.59 H (<0.48) ug/mL Sodium 137 (137-145) mmol/L Potassium 3.6 (3.4-5.0) mmol/L Chloride 102 (98-107) mmol/L Carbon Dioxide 27 (22-30) mmol/L Anion Gap 8 (4-12) mmol/L BUN 8 (7-17) mg/dL Creatinine 0.68 L (0.7-1.0) mg/dL Estim Creat Clear Calc 107 ml/min Estimated GFR > 60 (59 - ) Glucose 104 (65-110) mg/dL Calcium 9.1 (8.4-10.2) mg/dL Total Bilirubin 0.6 (0.2-1.3) mg/dL AST 31 (14-36) U/L ALT 17 (6-35) U/L Alkaline Phosphatase 88 (38-126) U/L Total Protein 8.5 H (6.3-8.2) g/dL Albumin 4.3 (3.5-5.1) g/dL Urine Color Yellow (Yellow) Urine Appearance Clear (Clear) Urine pH 6.5 (5.0-9.0) Ur Specific [place] 1.007 (1.001-1.035) Urine Protein Negative (Negative) mg/dL Urine Glucose (UA) Negative (Negative) mg/dL Urine Ketones Trace H (Negative) mg/dL Ur Blood (Man) 2+ H (Negative) Urine Nitrate Negative (Negative) Urine Bilirubin Negative (Negative) Urine Urobilinogen 1.0 (<2.0) mg/dL Leukocyte Esterase Rfl Trace H (Negative) OSMIN/UL Urine RBC 6-10 H (0-2) /hpf Urine WBC 0-5 (0-3) /hpf Ur Squamous Epith Cells Occasional (Few) /hpf Urine Bacteria None seen /hpf Urine Casts 0-2 POC Urine HCG, Qual Negative (Negative) Influenza A (RT-PCR) Negative (Negative) Influenza B (RT-PCR) Negative (Negative) RSV (RT-PCR) Negative (Negative) SARS-CoV-2 RNA (RT-PCR) Negative (Negative) Imaging Data Attestation: I personally reviewed and interpreted this imaging study as follows: Radiologist's impression: ITS Impressions Chest X-Ray 06/03/25 14:49 IMPRESSION: 1: NO ACUTE CARDIOPULMONARY DISEASE. Chest CTA 06/03/25 15:57 IMPRESSION: 1. Negative for pulmonary embolism. 2. Large focus of right lower lobe probable bronchopneumonia however there is a subcarinal mass which may represent reactive mediastinal lymphadenopathy however the appearance is atypical with narrowing of the bronchi in this location an underlying neoplasm is suspected. Clinical correlation is required. Bronchoscopy suggested to assess Discharge Plan Discharge Clinical Impression: Pneumonia Patient Disposition: Home Condition: Stable Instructions: Antibiotic Form, Bacterial Pneumonia (ED) Additional Instructions: Hydrate. Take Tylenol or Motrin [id number] for pain as needed. Take antibiotics as prescribed. Return to the emergency department if symptoms do not improve within 3 days or if symptoms worsen. Follow-up with pulmonology for the conditions discussed during your visit. Follow-up with primary care provider for other general concerns. Patient Language: Chinese Prescriptions: New doxycycline hyclate 100 mg capsule 100 mg PO BID Qty: 15 0RF amoxicillin-pot clavulanate [Augmentin] 500-125 mg tablet 1 tablet PO TID Qty: 22 0RF Follow-up/Referrals: Jonna Hayes MD [Other, Pulmonology] PHYSICIAN NOT ON STAFF,NONSTAFF [Primary Care Provider]
[2025-06-03] MEDS: ONDANSETRON INJ 4 MG/2 ML VIAL IV PUSH (16:19)
[2025-06-03] MEDS: HYDROmorphone HCL INJ (*CRX) 1 MG/ML SYR 0.5 MG IV PUSH (16:19)
[2025-06-03 16:48] VITALS: BP 129/78; PULSE 88; RESP 17; O2SAT 98
[2025-06-03 18:00] VITALS: BP 105/79; PULSE 92; RESP 17; O2SAT 98
== END 2025-06-03 18:02 | disposition home or self-care (01) ==
DX: J18.9 Pneumonia, unspecified organism (principal); Z20.822 Contact with and (suspected) exposure to COVID-19
CPT/HCPCS: 36415; 71046; 71275; 80053; 81001; 81025; 85025; 85380; 87637; 96361; 96374; 96375; 99284; J1171; J2405; Q9967